=== PATIENT | female | born 1985 ===

== ENCOUNTER 2021-07-27 09:00 | Outpatient (RCR) | payer OTHER, SELFPAY ==
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
[2021-07-10 12:45] VITALS: BMI 26.3
--- NOTE | 2021-07-10 13:46 | PC.ADMIT ---
Patient is a 35 year old female who was referred to [facility] by Crisis d/t increase in anxiety and depression. Patient reported she felt like she was having a mental breakdown. 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 Patient also had surgery on her ACL in September 2020. Patient also reported that she has 2 children ages 10 and 14 whom live with her who struggle with behavioral health issues. In addition, patient is 8 weeks and is receiving care. Patient reports she has a subchorionic hematoma and has had 2 emergency ultrasounds as a result. Patient reports she has another ultrasound scheduled for at 2:00pm. Patient reports she is currently from her boyfriend of 2 years as he has not been very supportive of what she is going through and is often mad . She stated she is taking space from him now however he still drops his daughter off at her house to catch the bus in the morning as he is still using her address in order for her daughter to attend school in her town. Patient talked about the need for boundary setting with her BF. Patient stated she used to cope with her mental health by exercising and has not been able to d/t ACL injury. Patient is alert and oriented x4. Calm and cooperative. Presents with depressed mood, anxious affect. Denied SI. Asked patient who she could call if she started to feel unsafe and she stated [facility], mother, her childrens father or her boyfriend however she stated he is last on her list. Medications reconciled with patient and patient's pharmacy. Patient is taking medications as prescribed.
--- NOTE | 2021-07-12 15:01 | PC.NURSE ---
Case opened in treatment team.
--- NOTE | 2021-07-17 08:30 | PC.NURSE ---
Pt has a scheduled surgery today (was scheduled yesterday) after losing her . She called and will not be in groups today.
--- NOTE | 2021-07-17 10:57 | PC.NURSE ---
Patient stated she is unable to attend the program today as she is having a surgical procedure.
--- NOTE | 2021-07-18 09:25 | PC.NURSE ---
Pt came to community meeting. She reported still not feeling well, and not sleeping after having surgery yesterday secondary to losing her . She said she will not attend groups today, but will be in tomorrow.
--- NOTE | 2021-07-18 16:15 | PC.NURSE ---
Janet Kennedy [facility], the phlebotomy program coordinator, called 6 different mental health agencies in search of one near pt that is taking new clients. She said most have a wait list of over 350 clients. She then put in an online referral for [facility], who said there will be a 10 week wait before they reach out to the pt. I then called several more agencies ([facility] [place], [facility], and [facility]). [facility] has not therapists, but can make a med appt, and the other two are not taking clients. I then called and spoke to pt. I offered to make a med appt at [facility] while we continue to search for therapists. Pt declined, stating she would like to continue having her PCP prescribe, as they have a good relationship, she is only on two meds that seem to be working, and she feels her symptoms are more situational. I told her that Janet put in a referral for [facility] and left her know its a 10 week wait. She was pleased, as she has also been searching and knows about the limited availability of treaters right now.
--- NOTE | 2021-07-19 15:30 | HO.PHPPROGNO ---
Subjective Subjective Date of Service: 07/19/21 Reason For Visit: Generalized Anxiety D/o Guardianship: No Medical Problems Affecting Mental Status: No Interim History: Client reports overall mood has improved, and then explains that ?today is a tough day ?. She states that she has had a difficult week, and is in a period of adjusting. Reports Celexa is working well to help with depression and anxiety symptoms. No thoughts of self-harm or harm to others in any way, no safety concern. Medication Compliance: Yes Side effects from medications: No Attending Groups: Yes Review of Systems Acute medical concerns: No Medical Review of Systems: unchanged Mental Status Exam Mental Status Exam Narrative: Well-developed, well-nourished female, in NAD. No Tics or Tremors. No abnormal involuntary movements. No SI/HI, no safety concern. Denies AH, VH. Patient Appearance: Well Grooomed and Appropriate Patient Orientation: Person, Place, Time and Situation Level of Consciousness: Awake, Appropriate and Alert Patient Behavior: Appropriate, Cooperative and Good Eye Contact Mood Description: Calm, Appropriate and Depressed Affect Description: Calm, Appropriate and Depressed Patient Cognition Impaired: No Ability to Follow Directions: Excellent Speech Pattern: Clear, Appropriate and Spontaneous Speech Memory Description: Intact Hallucinations: None Delusions: Not Present Thought Process: Intact, Goal Oriented and Linear Thought Content: positive for Intact, positive for Goal Oriented, positive for Linear and positive for Logical Depressive Symptoms: Loss of Int. in Activity, Unhappiness, Increased Fatigue and Difficulty Concentrating Judgement: Fair Diagnostics Vital Signs (24Hr): BMI result Body Mass Index 26.3 Assessment & Plan Assessment & Plan (1) MDD (major depressive disorder), recurrent episode, moderate: Status: Acute Code(s): F33.1 - Major depressive disorder, recurrent, moderate Assessment and Plan: Client reports overall feeling improvement with medications Celexa and hydroxyzine. Reports that she is utilizing the hydroxyzine at night, as it also helps her to sleep. Denies any thoughts of harm to self or others, no safety concerns. Reports that today has been difficult, also states ?it's been a rough week ?. Client did not report many details, but had alluded to several days of difficulty, including surgical procedure, also stating ?I am going through an adjustment. ?. Please note, it is stated in chart that client recently experienced loss of . She does report overall though that Celexa has been helpful with both depressive and anxiety symptoms, wishes to remain on current dose. We discussed possibility of dose increase if needed, and she stated that at this time she would prefer 10 mg. (2) TONY (generalized anxiety disorder): Status: Acute Code(s): F41.1 - Generalized anxiety disorder Assessment and Plan: 1. Continue with current medication regimen, including Celexa 10 mg daily, hydroxyzine 25 mg twice daily p.r.n. for anxiety and sleep. Client does not require any refills at this time. 2. Follow-up as per protocol. Patient educated on: diagnosis, medication risk/benefits and therapeutic strategies Informed Consent: understands Reason for contiued partial hosp. stay Substantial Risk for: inability to function and med/psych decompensation Certification I certify that partial hospital treatment is medically necessary due to the symptoms and problems resulting from the patient's mental illness and the failure to treat the patient at the partial hospital level of care would likely result in the patient requiring inpatient psychiatric care which could not be prevented at a less intensive level of care. I spent minutes with the patient and/or on the patient floor today, greater than?50% of which was spent counseling/coordinating care. Discharge Plan Discharge Attending provider: Kain Hayden Primary Care Provider: Soledad Eduardo Medications: No Action citalopram [Celexa] 10 mg Tablet 10 mg PO DAILY RF: 0 hydroxyzine HCl 25 mg Tablet 25 mg PO BID PRN (Reason: Anxiety) RF: 0 Referrals: Soledad Eduardo MD [Primary Care Provider] - 1 Week Telehealth Telehealth Location of provider rendering services: practice address Location of patient: address on file Patient Identification confirmed using: Name, : Yes Telehealth method: video Patient verbally consented to treatment: Yes Patient verbally consented to billing insurance company: Yes Patient informed of any privacy concerns related to visit: Yes Time spent with patient (mins): 15
--- NOTE | 2021-07-26 16:54 | P.PNPSP_ITS ---
Subjective Subjective Date of Service: 07/26/21 Reason For Visit: Generalized Anxiety D/o Guardianship: No Medical Problems Affecting Mental Status: No Interim History: Lesly reports that she no longer feels overwhelmed or out of control regarding her emotions. She states that current dose of medication is helping her to feel comfortable, and she can tell the dose is working. She reports good sleep, good appetite. No SI, no safety concerns. Reports that groups are helping her to feel more in control of her emotions in able to deal with her life stressors. Medication Compliance: Yes Side effects from medications: No Attending Groups: Yes Review of Systems Acute medical concerns: No Medical Review of Systems: unchanged Review of Systems Review of Systems Yes all other systems are reviewed and are negative Constitutional: Reports no additional constitutional complaints Mental Status Exam Mental Status Exam Narrative: Well-developed, well-nourished female, in NAD. No abnormal involuntary movements. No SI/HI, no safety concern. Denies AH, VH. Describes mood as becoming more stable, even . Patient Appearance: Well Grooomed and Appropriate Patient Orientation: Person, Place, Time and Situation Level of Consciousness: Awake, Appropriate and Alert Patient Behavior: Appropriate, Cooperative and Good Eye Contact Mood Description: Calm, Appropriate and Depressed (Reports mood is becoming more even and stable.) Affect Description: Calm, Appropriate and Depressed Patient Cognition Impaired: No Ability to Follow Directions: Excellent Speech Pattern: Clear, Appropriate and Spontaneous Speech Memory Description: Intact Hallucinations: None Delusions: Not Present Thought Process: Intact, Goal Oriented and Linear Thought Content: positive for Intact, positive for Goal Oriented, positive for Linear and positive for Logical Depressive Symptoms: Loss of Int. in Activity, Unhappiness, Increased Fatigue and Difficulty Concentrating Judgement: Fair Diagnostics Vital Signs (24Hr): BMI result Body Mass Index 26.3 Assessment & Plan Assessment & Plan (1) MDD (major depressive disorder), recurrent episode, moderate: Status: Acute Code(s): F33.1 - Major depressive disorder, recurrent, moderate Assessment and Plan: Lesly reports that she no longer feels overwhelmed or out of control re garding her emotions. She reports that she feels her symptoms of depression and anxiety are lessening, and that she now feels more stable. She states that current dose of medication is helping her to feel comfortable, and she can tell the dose is working. She reports good sleep, good appetite. No SI, no safety concerns. Reports that groups are helping her to feel more in control of her emotions in able to deal with her life stressors. (2) TONY (generalized anxiety disorder): Status: Acute Code(s): F41.1 - Generalized anxiety disorder Assessment and Plan: 1. Continue with current medications as prescribed. 2. Follow-up as per protocol. Patient educated on: diagnosis, medication risk/benefits and therapeutic strategies Informed Consent: understands Certification I certify that partial hospital treatment is medically necessary due to the symptoms and problems resulting from the patient's mental illness and the failure to treat the patient at the partial hospital level of care would likely result in the patient requiring inpatient psychiatric care which could not be prevented at a less intensive level of care. I spent minutes with the patient and/or on the patient floor today, greater than?50% of which was spent counseling/coordinating care. Discharge Plan Discharge Attending provider: Kain Hayden Primary Care Provider: Soledad Eduardo Medications: No Action citalopram [Celexa] 10 mg Tablet 10 mg PO DAILY RF: 0 hydroxyzine HCl 25 mg Tablet 25 mg PO BID PRN (Reason: Anxiety) RF: 0 Referrals: Soledad Eduardo MD [Primary Care Provider] - 1 Week Telehealth Telehealth Location of provider rendering services: practice address Location of patient: address on file Patient Identification confirmed using: Name, : Yes Telehealth method: video Patient verbally consented to treatment: Yes Patient verbally consented to billing insurance company: Yes Patient informed of any privacy concerns related to visit: Yes Time spent with patient (mins): 15
--- NOTE | 2021-07-27 12:50 | PC.NURSE ---
Patient discharged from the program today. Reports feeling anxious about discharge and stated she is going to miss the program as she found it so helpful . Patient denied SI, no safety issues. Reviewed patient medications with patient. She reports taking medications as prescribed.
== END 2021-07-30 07:59 | disposition home or self-care (01) ==
LOC: HO.PHPA 09:00
PROVIDERS: PCP Student in an Organized Health Care Education/Training Program; Visit Provider Psychiatry & Neurology Psychiatry
DX: F41.1 Generalized anxiety disorder (principal); F33.1 Major depressive disorder, recurrent, moderate
CPT/HCPCS: 90791; 90853